=== PATIENT | male | born 1975 | race African-American/Black ===

== ENCOUNTER 2017-10-25 15:55 | Emergency (ER) | payer OTHER ==
[~2017-10-25] VITALS: Ht 185.4 cm; Wt 170.1 kg
[2017-10-25 15:56] VITALS: BP 135/59
--- NOTE | 2017-10-25 16:08 | Emergency Room Report ---
History of Present Illness General Chief Complaint: Palpitations Source: Patient Present Illness HPI Patient presents with palpitations. This been going on for a few days. He has dyspnea on exertion and when he moves about he feels his heart skipping beats. He denies loss of consciousness but feels weak at times. He denies chest pain per se. Patient had an EKG performed by EMS. This had sinus tachycardia without any acute changes. The patient's been diagnosed with cardiomyopathy. His doctor was treating this with baby aspirin but he's not been taking this. He's not sure what the cause of the cardiomyopathy was. He states that he has a large heart on x-ray. He has some swelling in his ankles. He states this not worsened recently. Denies any calf pain, hemoptysis. He is worried he is having a heart attack or the cardiomyopathy is worsened. He was supposed to get a fasting blood sugar 8 months ago. Does not know HA1C. Denies polyuria or polydipsia. Denies stress or depression. Denies daily alcohol. No NVD, dysuria, headache, rashes. Allergies: Coded Allergies: No Known Allergies (Unverified , 11/29/14) Patient History Past Medical History: see triage record Social History: Reports: alcohol use; Denies: smoking Social History Narrative lives by himself Reviewed Nursing Documentation: PMH: Agreed; PSxH: Agreed Nursing Documentation-[facility] Past Medical History: No History, Except For Hx Cardiac Problems: Yes - CARDIOMYOPAHTY Hx Hypertension: Yes Review of Systems All Other Systems: negative except mentioned in HPI Physical Exam Vital Signs Date Time Temp Pulse Resp B/P (MAP) Pulse Ox O2 Delivery O2 Flow Rate FiO2 10/25/17 15:46 98.1 118 20 167/94 97 Room Air 98.1 Sp02 EP Interpretation: reviewed, normal General Appearance: well appearing, no apparent distress, GCS 15, obese Head: normocephalic Eyes: bilateral eye normal inspection, bilateral eye PERRL ENT: moist mucus membranes Neck: supple Respiratory: lungs clear, normal breath sounds Cardiovascular #1: regular rate, rhythm Cardiovascular #2: 2+ radial (R) Gastrointestinal: normal inspection, normal bowel sounds, non tender, no mass, non-distended Musculoskeletal: back normal, gait/station normal, normal range of motion Neurologic: alert, oriented x3 Skin: normal inspection, warm/dry Medical Decision Making Diagnostic Impression: Primary Impression: Palpitations Additional Impressions: Hyperglycemia BMI 45.0-49.9, adult Anemia Qualified Codes: D64.9 - Anemia, unspecified ER Course Patient presents with a history of palpitations and cardiomyopathy. Differential includes arrhythmia, exacerbation of cardiomyopathy, congestive heart failure, acute myocardial infarction, hyperthyroid amongst others. Physical exam is against PE. Evaluation will be with EKG, chest x-ray and labs. Depending on what the these showed the patient may he treated with beta blockers or other need for medication. EKG without ectopy or injury. Labs with elevated glucose and minimal renal insufficiency (improved from 2015). Min elevated CK. Min increased WBC and anemia (improved from 2015). Heart size normal on CXR. BNP normal. During observation, no arrhythmia or ectopy noted. Initial tachycardia resolved. Discussed findings. Consider treatment of hyperglycemia entertained, however, will have follow with PMD for further labs. Patient stable for outpatient observation and treatment. Laboratory Tests Test 10/25/17 16:05 10/25/17 16:22 White Blood Count 11.3 K/UL (4.8-10.8) H Red Blood Count 4.27 M/UL (4.70-6.10) L Hemoglobin 12.4 G/DL (14.2-18.0) L Hematocrit 38.1 % (42.0-52.0) L Mean Corpuscular Volume 89 FL (80-99) Mean Corpuscular Hemoglobin 29.1 PG (27.0-31.0) Mean Corpuscular Hemoglobin Concent 32.5 G/DL (32.0-36.0) Red Cell Distribution Width 11.5 % (11.6-14.8) L Platelet Count 269 K/UL (150-450) Mean Platelet Volume 7.9 FL (6.5-10.1) Neutrophils (%) (Auto) 55.0 % (45.0-75.0) Lymphocytes (%) (Auto) 37.5 % (20.0-45.0) Monocytes (%) (Auto) 5.7 % (1.0-10.0) Eosinophils (%) (Auto) 0.4 % (0.0-3.0) Basophils (%) (Auto) 1.4 % (0.0-2.0) Prothrombin Time 10.5 SEC (9.30-11.50) Prothrombin Time INR 1.0 (0.9-1.1) PTT 25 SEC (23-33) Sodium Level 137 MMOL/L (136-145) Potassium Level 3.8 MMOL/L (3.5-5.1) Chloride Level 103 MMOL/L (98-107) Carbon Dioxide Level 26 MMOL/L (21-32) Anion Gap 8 mmol/L (5-15) Blood Urea Nitrogen 16 mg/dL (7-18) Creatinine 1.4 MG/DL (0.55-1.30) H Estimate Glomerular Filtration Rate > 60 mL/min (>60) Glucose Level 175 MG/DL (74-106) H Calcium Level 8.6 MG/DL (8.5-10.1) Total Bilirubin 0.3 MG/DL (0.2-1.0) Aspartate Amino Transferase (AST) 21 U/L (15-37) Alanine Aminotransferase (ALT) 27 U/L (12-78) Alkaline Phosphatase 69 U/L (46-116) Total Creatine Kinase 586 U/L (26-308) H Troponin I 0.000 ng/mL (0.000-0.056) Pro-B-Type Natriuretic Peptide 14 pg/mL (0-125) Total Protein 8.1 G/DL (6.4-8.2) Albumin 3.2 G/DL (3.4-5.0) L Globulin 4.9 g/dL Albumin/Globulin Ratio 0.7 (1.0-2.7) L Thyroid Stimulating Hormone (TSH) 1.648 uiU/mL (0.358-3.740) Serum Alcohol < 3 mg/dL Urine Color Yellow Urine Appearance Clear Urine pH 5 (4.5-8.0) Urine Specific [place] 1.020 (1.005-1.035) Urine Protein 2+ (NEGATIVE) H Urine Glucose (UA) Negative (NEGATIVE) Urine Ketones Negative (NEGATIVE) Urine Occult Blood Negative (NEGATIVE) Urine Nitrite Negative (NEGATIVE) Urine Bilirubin Negative (NEGATIVE) Urine Urobilinogen Normal MG/DL (0.0-1.0) Urine Leukocyte Esterase Negative (NEGATIVE) Urine RBC 0-2 /HPF (0 - 0) H Urine WBC 0-2 /HPF (0 - 0) Urine Squamous Epithelial Cells None /LPF (NONE/OCC) Urine Bacteria Few /HPF (NONE) Urine Opiates Screen Negative (NEGATIVE) Urine Barbiturates Screen Negative (NEGATIVE) Phencyclidine (PCP) Screen Negative (NEGATIVE) Urine Amphetamines Screen Negative (NEGATIVE) Urine Benzodiazepines Screen Negative (NEGATIVE) Urine Cocaine Screen Negative (NEGATIVE) Urine Marijuana (THC) Screen Negative (NEGATIVE) EKG Diagnostic Results Rate: normal Rhythm: NSR ST Segments: no acute changes Rhythm Strip Diag. Results EP Interpretation: yes Rhythm: NSR, no PVC's, no ectopy Chest X-Ray Diagnostic Results Chest X-Ray Diagnostic Results : Chest X-Ray Ordered: Yes # of Views/Limited/Complete: 1 View Indication: Chest Pain Interpretation: no consolidation, no effusion, no pneumothorax Impression: No acute disease Electronically Signed by: laboratory Last Vital Signs Date Time Temp Pulse Resp B/P (MAP) Pulse Ox O2 Delivery O2 Flow Rate FiO2 10/25/17 21:16 97.3 90 17 124/49 96 Room Air 97.3 Status: improved Disposition: HOME, SELF-CARE Condition: Improved Scripts Multivitamin With Minerals (MULTIVITAMINS WITH MINERALS*) 1 Each Tablet 1 TAB ORAL DAILY, #30 TAB Prov: Matthieu Rodriguez M.D. 10/25/17 Matthieu Rodriguez M.D. Oct 25, 2017 16:08
[2017-10-25 16:30] LABS: BASOPHILS % (AUTO) 1.4 % (0.0-2.0); EOSINOPHILS % (AUTO) 0.4 % (0.0-3.0); HEMATOCRIT 38.1 % (42.0-52.0); HEMOGLOBIN 12.4 G/DL (14.2-18.0); LYMPHOCYTES % (AUTO) 37.5 % (20.0-45.0); MEAN CORPUSCULAR VOLUME 89 FL (80-99); MONOCYTES % (AUTO) 5.7 % (1.0-10.0); PLATELET COUNT 269 K/UL (150-450); RED BLOOD COUNT 4.27 M/UL (4.70-6.10); RED CELL DISTRIBUTION WIDTH 11.5 % (11.6-14.8); WHITE BLOOD COUNT 11.3 K/UL (4.8-10.8)
--- NOTE | 2017-10-25 16:34 | Diagnostic Imaging Report ---
Indication: Chest pain Technique: XRAY Chest 1v Comparison: 11/29/2014 Findings: Heart size within upper limits for normal. There are increased lung markings with peribronchial thickening. Findings suggest small airway disease/bronchitis. There is no focal consolidation. Costophrenic sulci are sharp. No pneumothorax. No acute osseous abnormality. IMPRESSION: Increased lung markings with peribronchial thickening. Correlate clinically to assess for reactive or small airway disease.
[2017-10-25 16:43] LABS: ANION GAP 8 mmol/L (5-15); BLOOD UREA NITROGEN 16 mg/dL (7-18); CALCIUM 8.6 MG/DL (8.5-10.1); CARBON DIOXIDE 26 MMOL/L (21-32); CHLORIDE 103 MMOL/L (98-107); CREATININE 1.4 MG/DL (0.55-1.30); POTASSIUM 3.8 MMOL/L (3.5-5.1); SODIUM 137 MMOL/L (136-145)
[2017-10-25 16:45] LABS: APPEARANCE,URINE CLEAR; BILIRUBIN, URINE NEGATIVE (NEGATIVE); GLUCOSE, URINE (UA) NEGATIVE (NEGATIVE); KETONES,URINE NEGATIVE (NEGATIVE); LEUKOCYTE ESTERASE ,URINE NEGATIVE (NEGATIVE); NITRITE,URINE NEGATIVE (NEGATIVE); PH,URINE 5 (4.5-8.0); PROTEIN,URINE 2+ (NEGATIVE); UROBILINOGEN,URINE NORMAL MG/DL (0.0-1.0)
[2017-10-25 16:58] LABS: COLOR,URINE YELLOW
[2017-10-25 17:01] LABS: ALANINE AMINOTRANSFERASE 27 U/L (12-78); ALBUMIN 3.2 G/DL (3.4-5.0); ALBUMIN/GLOBULIN RATIO 0.7 (1.0-2.7); ALKALINE PHOSPHATASE 69 U/L (46-116); ASPARTATE AMINO TRANSFERASE 21 U/L (15-37); BILIRUBIN,TOTAL 0.3 MG/DL (0.2-1.0); CREATINE KINASE 586 U/L (26-308)
[2017-10-25 18:09] VITALS: BP 139/64
[2017-10-25 19:45] VITALS: BP 125/68
[2017-10-25 20:58] VITALS: BP 124/49
[2017-10-25] MEDS ORDERED: MULTIVITAMINS1 EAC8 ORAL (21:11)
[2017-10-25 21:16] VITALS: BP 124/49
--- NOTE | 2017-10-27 13:47 | Cardiology Report ---
APPROVED REPORT EKG Measurement Heart [id number] Normal sinus rhythm Normal ECG
== END 2017-10-25 21:16 | disposition home or self-care (01) ==
LOC: EDBD 15:55 → EMR 16:23
DX: R00.2 Palpitations (principal); I10 Essential (primary) hypertension; R73.9 Hyperglycemia, unspecified; D64.9 Anemia, unspecified; I42.9 Cardiomyopathy, unspecified
CPT/HCPCS: 36415; 71045; 80053; 80307; 81003; 82550; 83880; 84443; 84484; 85025; 85610; 85730; 93005; 99284; G0480; 80329

== ENCOUNTER 2017-11-18 22:29 | Inpatient (IN) | payer OTHER ==
[~2017-11-18] VITALS: Ht 188 cm; Wt 179.2 kg
[~2017-11-18 22:29] MED LIST: MULTIVITAMINS1 EAC8 ORAL
[2017-11-18 22:52] LABS: HEMATOCRIT 41.5 % (42.0-52.0); HEMOGLOBIN 13.6 G/DL (14.2-18.0); MEAN CORPUSCULAR VOLUME 88 FL (80-99); PLATELET COUNT 292 K/UL (150-450); RED BLOOD COUNT 4.71 M/UL (4.70-6.10); RED CELL DISTRIBUTION WIDTH 11.4 % (11.6-14.8); WHITE BLOOD COUNT 12.3 K/UL (4.8-10.8)
--- NOTE | 2017-11-18 22:54 | Emergency Room Report ---
History of Present Illness General Chief Complaint: Chest Pain Source: Patient Present Illness HPI Is a 42-year-old male with BMI of 51 and with newly diagnosed diabetes. He said his A1c was 6.6. He was started on metformin but stopped because of abdominal pain. Also has a history of anxiety. He presents with chief complaint of chest pain. He said pain is burning sensation radiating to the right arm. Has been on and off all day today. He felt his heart beating fast tonight. He said is different from his anxiety. No exertional component. No fever or chills. No diaphoresis. Didn't feel short of breath. He called 911. EMS gave him aspirin and nitroglycerin. He said the pain went from a 10 to 4 after nitroglycerin. Allergies: Coded Allergies: No Known Allergies (Unverified , 11/29/14) Patient History Past Medical History: see triage record, old chart reviewed, DM, psych hx Past Surgical History: none Pertinent Family History: other - Cardiomyopathy Social History: Denies: smoking Immunizations: other Reviewed Nursing Documentation: PMH: Agreed; PSxH: Agreed Nursing Documentation-PMH Hx Cardiac Problems: Yes - CARDIOMYOPAHTY Hx Hypertension: Yes Hx Diabetes: Yes Review of Systems Eye: Denies: eye pain, blurred vision ENT: Denies: ear pain, nose congestion, throat swelling Respiratory: Denies: cough, shortness of breath Cardiovascular: Reports: chest pain; Denies: palpitations Gastrointestinal: Denies: abdominal pain, diarrhea, nausea, vomiting Musculoskeletal: Denies: back pain, joint pain Skin: Denies: rash Neurological: Denies: headache, numbness Endocrine: Denies: increased thirst, increased urine Hematologic/Lymphatic: Denies: easy bruising All Other Systems: negative except mentioned in HPI Physical Exam Vital Signs Date Time Temp Pulse Resp B/P (MAP) Pulse Ox O2 Delivery O2 Flow Rate FiO2 11/18/17 22:30 98.9 82 18 135/80 100 Room Air 99.0 vitals normal Sp02 EP Interpretation: reviewed, normal General Appearance: well appearing, no apparent distress, alert, obese Head: normocephalic, atraumatic Eyes: bilateral eye PERRL, bilateral eye EOMI ENT: hearing grossly normal, normal pharynx Neck: full range of motion, supple, no meningismus Respiratory: chest non-tender, lungs clear, normal breath sounds Cardiovascular #1: regular rate, rhythm, no murmur Gastrointestinal: normal bowel sounds, non tender, no mass, no organomegaly, no bruit, non-distended Musculoskeletal: back normal, gait/station normal, normal range of motion Psychiatric: mood/affect normal Skin: warm/dry Medical Decision Making Diagnostic Impression: Primary Impression: Chest pain Qualified Codes: R07.9 - Chest pain, unspecified Additional Impression: Morbid obesity with BMI of 50.0-59.9, adult ER Course Patient with chest pain. EKG normal. Troponin negative. Because of his risk factor of sex, obesity, diabetes and family history, he warrant further testing and provocative stress testing. Patient will be admitted here for further testing. I contacted Dr. Coles for admission. EKG Diagnostic Results Rate: normal Rhythm: NSR ST Segments: no acute changes Rhythm Strip Diag. Results Rhythm Strip Time: 22:53 EP Interpretation: yes Rate: 82 Rhythm: NSR, no PVC's, no ectopy Chest X-Ray Diagnostic Results Chest X-Ray Diagnostic Results : Chest X-Ray Ordered: Yes # of Views/Limited/Complete: 1 View Indication: Chest Pain EP Interpretation: Yes Interpretation: no consolidation, no effusion, no pneumothorax, no acute cardiopulmonary disease Impression: No acute disease Electronically Signed by: Catrachito Aparicio MD Last Vital Signs Date Time Temp Pulse Resp B/P (MAP) Pulse Ox O2 Delivery O2 Flow Rate FiO2 11/18/17 22:30 98.9 82 18 135/80 100 Room Air 99.0 Status: improved Disposition: ADMITTED INPATIENT Condition: Serious CATRACHITO APARICIO M.D. Nov 18, 2017 22:54
[2017-11-18 23:00] VITALS: BP 135/80
[2017-11-18 23:05] LABS: ANION GAP 6 mmol/L (5-15); BLOOD UREA NITROGEN 13 mg/dL (7-18); CALCIUM 9.4 MG/DL (8.5-10.1); CARBON DIOXIDE 28 MMOL/L (21-32); CHLORIDE 102 MMOL/L (98-107); CREATININE 1.3 MG/DL (0.55-1.30); POTASSIUM 3.9 MMOL/L (3.5-5.1); SODIUM 136 MMOL/L (136-145)
--- NOTE | 2017-11-18 23:15 | Diagnostic Imaging Report ---
EXAM: XR Chest, 1 View CLINICAL HISTORY: Chest pain TECHNIQUE: Frontal view of the chest. COMPARISON: 10/25/2017 FINDINGS: Lungs: Hypoventilatory lungs. No focal consolidation. Prominence of the central bronchovascular structures is likely in part due to low lung volumes. Pleural space: Unremarkable. No pneumothorax. Heart: Stable cardiomediastinal silhouette. Mediastinum: See above. Bones/joints: No acute osseous abnormality. IMPRESSION: No acute cardiopulmonary process.
[2017-11-18 23:19] LABS: ALANINE AMINOTRANSFERASE 46 U/L (12-78); ALBUMIN 3.7 G/DL (3.4-5.0); ALBUMIN/GLOBULIN RATIO 0.7 (1.0-2.7); ALKALINE PHOSPHATASE 86 U/L (46-116); ASPARTATE AMINO TRANSFERASE 23 U/L (15-37); BILIRUBIN,TOTAL 0.3 MG/DL (0.2-1.0); CKMB 1.6 NG/ML (0.0-3.6); CREATINE KINASE 431 U/L (26-308)
[2017-11-19 00:06] LABS: APPEARANCE,URINE CLEAR; COLOR,URINE YELLOW; GLUCOSE, URINE (UA) NEGATIVE (NEGATIVE); KETONES,URINE 1+ (NEGATIVE); PH,URINE 5 (4.5-8.0); PROTEIN,URINE 2+ (NEGATIVE)
[2017-11-19 00:07] LABS: BILIRUBIN, URINE NEGATIVE (NEGATIVE); LEUKOCYTE ESTERASE ,URINE NEGATIVE (NEGATIVE); NITRITE,URINE NEGATIVE (NEGATIVE); UROBILINOGEN,URINE 1 MG/DL (0.0-1.0)
[2017-11-19 00:15] VITALS: BP 125/75
[2017-11-19] MEDS ORDERED: ASPIRIN81 MG ORAL (00:27)
[2017-11-19 04:00] VITALS: BP 119/71
[2017-11-19] MEDS ORDERED: Milk of Magnesia 30ml Ud ORAL PRN (04:00)
[2017-11-19 05:10] LABS: EOSINOPHILS % (AUTO) 0.5 % (0.0-3.0); HEMOGLOBIN 12.9 G/DL (14.2-18.0); LYMPHOCYTES % (AUTO) 52.4 % (20.0-45.0); MEAN CORPUSCULAR VOLUME 88 FL (80-99); MONOCYTES % (AUTO) 7.5 % (1.0-10.0); NEUTROPHILS % (AUTO) 38.7 % (45.0-75.0); PLATELET COUNT 277 K/UL (150-450); RED BLOOD COUNT 4.44 M/UL (4.70-6.10); RED CELL DISTRIBUTION WIDTH 11.3 % (11.6-14.8); WHITE BLOOD COUNT 8.3 K/UL (4.8-10.8)
[2017-11-19 05:28] LABS: ANION GAP 7 mmol/L (5-15); BLOOD UREA NITROGEN 11 mg/dL (7-18); CALCIUM 9.3 MG/DL (8.5-10.1); CARBON DIOXIDE 26 MMOL/L (21-32); CHLORIDE 103 MMOL/L (98-107); CREATININE 1.3 MG/DL (0.55-1.30); POTASSIUM 4.2 MMOL/L (3.5-5.1); SODIUM 136 MMOL/L (136-145)
[2017-11-19] MEDS: NovoLOG Insulin Flexpen SUBQ SCH ×2 (06:19→11:30)
[2017-11-19] MEDS ORDERED: LORazepam 1mg tab ORAL PRN (07:15)
[2017-11-19 07:44] VITALS: BP 104/59
--- NOTE | 2017-11-19 08:43 | History & Physical ---
History and Physical History & Physicial 42 year old male with recently diagnosed diabetes. Patient with known anxiety and noted chest burning with associated palpitations. patient currently chest pain free. risk factors: diabetes, obesity PMH: diabetes MEDS and ALLERGIES: reviewed SHX; nonsmoker PHYSICAL WDWN NAD clear breath sounds bilaterally without rhonchi or wheeze [id number] without MRG NABS nontender no HSM no CCE nonfocal obese Labs Test 11/18/17 22:34 11/18/17 22:49 11/19/17 05:00 White Blood Count 12.3 K/UL (4.8-10.8) 8.3 K/UL (4.8-10.8) Red Blood Count 4.71 M/UL (4.70-6.10) 4.44 M/UL (4.70-6.10) Hemoglobin 13.6 G/DL (14.2-18.0) 12.9 G/DL (14.2-18.0) Hematocrit 41.5 % (42.0-52.0) 39.0 % (42.0-52.0) Mean Corpuscular Volume 88 FL (80-99) 88 FL (80-99) Mean Corpuscular Hemoglobin 29.0 PG (27.0-31.0) 29.1 PG (27.0-31.0) Mean Corpuscular Hemoglobin Concent 32.9 G/DL (32.0-36.0) 33.1 G/DL (32.0-36.0) Red Cell Distribution Width 11.4 % (11.6-14.8) 11.3 % (11.6-14.8) Platelet Count 292 K/UL (150-450) 277 K/UL (150-450) Mean Platelet Volume 7.9 FL (6.5-10.1) 7.2 FL (6.5-10.1) Neutrophils (%) (Auto) % (45.0-75.0) 38.7 % (45.0-75.0) Lymphocytes (%) (Auto) % (20.0-45.0) 52.4 % (20.0-45.0) Monocytes (%) (Auto) % (1.0-10.0) 7.5 % (1.0-10.0) Eosinophils (%) (Auto) % (0.0-3.0) 0.5 % (0.0-3.0) Basophils (%) (Auto) % (0.0-2.0) 1.0 % (0.0-2.0) Differential Total Cells Counted 100 Neutrophils % (Manual) 33 % (45-75) Lymphocytes % (Manual) 62 % (20-45) Monocytes % (Manual) 5 % (1-10) Eosinophils % (Manual) 0 % (0-3) Basophils % (Manual) 0 % (0-2) Band Neutrophils 0 % (0-8) Platelet Estimate Adequate Platelet Morphology Normal Sodium Level 136 MMOL/L (136-145) 136 MMOL/L (136-145) Potassium Level 3.9 MMOL/L (3.5-5.1) 4.2 MMOL/L (3.5-5.1) Chloride Level 102 MMOL/L (98-107) 103 MMOL/L (98-107) Carbon Dioxide Level 28 MMOL/L (21-32) 26 MMOL/L (21-32) Anion Gap 6 mmol/L (5-15) 7 mmol/L (5-15) Blood Urea Nitrogen 13 mg/dL (7-18) 11 mg/dL (7-18) Creatinine 1.3 MG/DL (0.55-1.30) 1.3 MG/DL (0.55-1.30) Estimat Glomerular Filtration Rate > 60 mL/min (>60) > 60 mL/min (>60) Glucose Level 122 MG/DL (74-106) 102 MG/DL (74-106) Calcium Level 9.4 MG/DL (8.5-10.1) 9.3 MG/DL (8.5-10.1) Total Bilirubin 0.3 MG/DL (0.2-1.0) Aspartate Amino Transf (AST/SGOT) 23 U/L (15-37) Alanine Aminotransferase (ALT/SGPT) 46 U/L (12-78) Alkaline Phosphatase 86 U/L (46-116) Total Creatine Kinase 431 U/L (26-308) Creatine Kinase MB 1.6 NG/ML (0.0-3.6) Creatine Kinase MB Relative Index 0.3 Troponin I 0.000 ng/mL (0.000-0.056) 0.000 ng/mL (0.000-0.056) Total Protein 8.8 G/DL (6.4-8.2) Albumin 3.7 G/DL (3.4-5.0) Globulin 5.1 g/dL Albumin/Globulin Ratio 0.7 (1.0-2.7) Urine Color Yellow Urine Appearance Clear Urine pH 5 (4.5-8.0) Urine Specific [place] 1.020 (1.005-1.035) Urine Protein 2+ (NEGATIVE) Urine Glucose (UA) Negative (NEGATIVE) Urine Ketones 1+ (NEGATIVE) Urine Blood 1+ (NEGATIVE) Urine Nitrite Negative (NEGATIVE) Urine Bilirubin Negative (NEGATIVE) Urine Urobilinogen 1 MG/DL (0.0-1.0) Urine Leukocyte Esterase Negative (NEGATIVE) Urine RBC 0-2 /HPF (0 - 0) Urine WBC 0-2 /HPF (0 - 0) Urine Squamous Epithelial Cells Occasional /LPF Urine Bacteria Few /HPF (NONE) Urine Mucus Few /LPF (NONE/OCC) Urine Opiates Screen Negative (NEGATIVE) Urine Barbiturates Screen Negative (NEGATIVE) Phencyclidine (PCP) Screen Negative (NEGATIVE) Urine Amphetamines Screen Negative (NEGATIVE) Urine Benzodiazepines Screen Negative (NEGATIVE) Urine Cocaine Screen Negative (NEGATIVE) Urine Marijuana (THC) Screen Negative (NEGATIVE) ECG negative IMPRESSION chest pain obesity diabetes normal ECG and troponin PLAN await final troponin d/w patient and admits to anxiety will dc if negative asked patient to return to ER if chest pain recurs follow up with PMD for outpatient stress patient aware and will return if needed currently stable, nontoxic, and would like to go home Memo Coles MD Nov 19, 2017 08:43
[2017-11-19] MEDS ORDERED: Aspirin Baby 81mg ORAL SCH (09:00)
[2017-11-19] MEDS ORDERED: Heparin 5000 units/ml inj SUBQ SCH (09:00)
[2017-11-19] MEDS ORDERED: ALPRAZOLAM1 MG ORAL (11:56)
[2017-11-19 11:59] VITALS: BP 114/65
--- NOTE | 2017-11-21 17:34 | Cardiology Report ---
APPROVED REPORT EKG Measurement Heart [id number] Normal sinus rhythm Normal ECG
--- NOTE | 2017-11-22 07:27 | Discharge Summary ---
Discharge Summary Discharge Summary _ DATE OF ADMISSION: 11/18/2017 DATE OF DISCHARGE:11/19/2017 REASON FOR ADMISSION: 42 years old male with history of recently diagnosed diabetes mellitus , anxiety disorder, morbidly obese, presented to emergency room complaining of chest pain. In emergency room EKG revealed normal sinus rhythm, no acute ischemic changes. Chest x-ray revealed no acute cardiopulmonary pathology. Troponin was negative. Urine toxicology screen was negative. Patient admitted with diagnoses of chest pain, rule out acute coronary syndrome , morbid obesity, newly diagnosed diabetes mellitus, anxiety disorder. HOSPITAL COURSE: Patient admitted to telemetry. Patient started on Aspirin. Serial troponin were negative. Telemetry and EKG revealed no acute ischemic changes . Patient was ruled out for acute NH. DVT and GI prophylaxis provided. Blood pressure was closely mentioned and remained stable. Blood sugar was managed with sliding scale of insulin,. Pain management addressed as needed . Patient admitted to anxiety. Anxiolytics provided as needed Chest pain subsided , and was likely secondary to anxiety. Patient stabilized and was ready for discharge home. Patient was educated on return to ED precautions if chest pain recurs. Patient to follow-up with the primary care provider for outpatient stress test Due to rapid and unexpected improvement in patient's condition, patient was discharged in one day FINAL DIAGNOSES: Chest pain, likely secondary to anxiety disorder-resolved Morbid obesity with BMI over 50 Newly diagnosed diabetes mellitus DISCHARGE MEDICATIONS: See Medication Reconciliation list. DISCHARGE INSTRUCTIONS: Patient was discharged home Follow up with primary care provider for outpatient stress test Patient cousneled on return to ED precautions if chest pain return I have been assigned to dictate discharge summary for this account. I was not involved in the patient's management. Catina Larios NP Nov 22, 2017 07:27
== END 2017-11-19 13:33 | disposition home or self-care (01) | DRG 313 ==
LOC: EDBD 22:29 → EMR 22:49 → EDBEDREQ 23:32 → 2E 23:33
DX: R07.89 Other chest pain (principal); Z68.43 Body mass index [BMI] 50.0-59.9, adult; F41.9 Anxiety disorder, unspecified; E66.01 Morbid (severe) obesity due to excess calories; E11.9 Type 2 diabetes mellitus without complications
CPT/HCPCS: 36415; 71045; 80048; 80053; 80307; 81003; 82550; 82553; 84484; 85007; 85025; 93005; J1815